=== PATIENT | female | born 1950 | race Caucasian/White ===

== ENCOUNTER → 2017-01-22 | Outpatient (CLI) | payer BC ==
[~2017-01-22] MED LIST: AMIT50TA PO; AMLODIPINE/BENAZ PO; ASCO500T29 PO; ATOR40TA PO; CALC-649 PO; CARV12.52 PO; HYDR25TA6 PO; INSU100V12 SC; LANS30CA PO; MULT-516 PO; OMEG100023 PO; VITA100C8 PO; VITA80004 PO
== END | disposition home or self-care (01) ==
LOC: PETCFH 12:39
PROVIDERS: ATTEND Internal Medicine Cardiovascular Disease
DX: I25.119 Atherosclerotic heart disease of native coronary artery with unspecified angina pectoris (principal)
CPT/HCPCS: 78472; A9560

== ENCOUNTER 2017-02-18 10:51 | Day surgery (SDC) | payer MEDICARE ==
[2017-02-17 11:08] VITALS: BP 131/69
[2017-02-17 12:44] LABS: BLOOD UREA NITROGEN 24 mg/dL (7-18)
[2017-02-17 13:08] LABS: DIFF TOTAL CELLS COUNTED 100 CELL DIFF
[2017-02-17 13:12] LABS: VERIFY COUNTS? YES
[~2017-02-18] VITALS: Ht 170.2 cm; Wt 72.2 kg
[~2017-02-18 10:51] MED LIST changes: +AMLO1CAP10 PO; +ATOR80TA75 PO; +BENA10TA2 PO; +CHOL10003 PO; +CHOL4PAC3 PO; +CLOP75TA PO; +DICY20TA3 PO; +HYOS0.126 PO; +INSU100I17 SC; +METO-93 PO; +METO-95 PO; +VITA1CAP PO; +calcium,mag,zinc PO
[2017-02-18] MEDS ORDERED: SODIUM CHLORIDE 0.9% 1,000 ML IV SCH (10:52)
[2017-02-18] MEDS ORDERED: ASPIRIN 325 MG TABLET EC PO ONE (11:00)
[2017-02-18] MEDS ORDERED: BISACODYL 5 MG EC TABLET PO PRN (11:00)
[2017-02-18] MEDS ORDERED: ZOLPIDEM 5MG TABLET PO PRN (11:00)
[2017-02-18] MEDS ORDERED: ONDANSETRON 2MG/ML, 2ML IVPush PRN (11:00)
[2017-02-18] MEDS ORDERED: BISACODYL 10 MG SUPP PR PRN (11:00)
[2017-02-18] MEDS ORDERED: ACETAMINOPHEN 325 MG TABLET PO PRN (11:00)
[2017-02-18] MEDS ORDERED: MIDAZOLAM 1 MG/ML, 5ML ONE (12:03)
[2017-02-18] MEDS ORDERED: FENTANYL PF 100 MCG/2ML ONE (12:04)
[2017-02-18] MEDS ORDERED: HEPARIN 1,000 UNITS/ML, 10ML ONE (12:04)
[2017-02-18] MEDS ORDERED: BIVALIRUDIN 250 MG ONE (12:04)
[2017-02-18] MEDS ORDERED: LIDOCAINE 2%, 20ML ONE (12:04)
[2017-02-18] MEDS ORDERED: VERAPAMIL 2.5 MG/ML, 2ML ONE (12:04)
[2017-02-18] MEDS ORDERED: NITROGLYCERIN 5 MG/ML, 10ML ONE (12:04)
[2017-02-18] MEDS ORDERED: DIPHENHYDRAMINE 50 MG/ML, 1ML ONE (12:58)
== END 2017-02-18 15:38 | disposition home or self-care (01) ==
LOC: CACL 10:51
PROVIDERS: ATTEND Internal Medicine Cardiovascular Disease
DX: I25.119 Atherosclerotic heart disease of native coronary artery with unspecified angina pectoris (principal); I25.2 Old myocardial infarction; Z95.1 Presence of aortocoronary bypass graft; Z79.01 Long term (current) use of anticoagulants; Z88.1 Allergy status to other antibiotic agents
CPT/HCPCS: 36415; 80048; 85025; 85610; 85730; 93459; 99156; 99157; C1894; J1200; J1644; J2250; J3010; J3490; Q9967; J0583